=== PATIENT | female | born 1945 | race Caucasian/White ===

== ENCOUNTER → 2016-06-25 | Outpatient (CLI) | payer BC ==
--- NOTE | 2016-06-26 07:42 | MAMMOGRAPHY REPORT ---
BILATERAL DIGITAL SCREENING MAMMOGRAM WITH CAD: 06/25/2016 CLINICAL HISTORY: Routine screening. Patient has no complaints. TECHNIQUE: Current study was also evaluated with a Computer Aided Detection (CAD) system. Bilatera l CC and MLO views were obtained. COMPARISON: Comparison is made to exams dated: 06/25/2015 mammogram - [facility], mammogram, 06/16/2013 mammogram, 06/08/2012 mammogram, 05/26/2011 mammogram, and 05/16/2010 mamm [place]gram [place] [facility] [place]. BREAST COMPOSITION: There are scattered areas of fibroglandular density in both breasts. FINDINGS: No suspicious masses, calcifications, or areas of architectural distortion are noted in e ither breast. There has been no significant interval change compared to prior exams. IMPRESSION: ACR BI-RADS CATEGORY 1: NEGATIVE There is no mammographic evidence of malignancy. A 1 year screening mammogram is recommended. The p atient will receive written notification of the results. Approximately 10% of breast cancers are not detected with mammography. A negative mammographic repor t should not delay biopsy if a clinically suggestive mass is present. Dotty Brewer M.D. ah/:06/25/2016 14:43:25 [employer] Agent: Amanda SANDOVAL(Eric)(M), [facility] letter sent: Normal 1/2 BI-RADS Code: ACR BI-RADS Category 1: Negative
== END | disposition home or self-care (01) ==
LOC: C.MAMM 10:40
PROVIDERS: ATTEND Obstetrics & Gynecology
DX: Z12.31 Encounter for screening mammogram for malignant neoplasm of breast (principal)

== ENCOUNTER → 2016-07-07 | Outpatient (CLI) | payer BC ==
[2016-07-07 13:10] LABS: BASO % 0.6 %; BASO ABS # 0.03 K/uL (0-0.2); COMPLETE YES; EOS % 3.3 %; HEMATOCRIT 39.5 % (37-47); LYMPH % 34.2 %; LYMPH ABS # 1.67 K/uL (1.2-3.4); MEAN CELL VOLUME 87.8 fL (80-100); MEAN CORPUSCULAR HGB CONC 31.9 g/dl (32-36); MEAN PLATELET VOLUME 9.9 fL (7.4-10.4); MONO % 8.2 %; NEUT % 53.7 %; PLATELET COUNT 224 K/uL (130-400); WHITE BLOOD COUNT 4.89 K/uL (4.8-10.8)
[2016-07-07 14:11] LABS: ALT/SGPT 15 U/L (12-78); AST/SGOT 12 U/L (15-37); BLOOD UREA NITROGEN 11 mg/dl (7-18); BUN/CREATININE RATIO 11.2 (10-20); CARBON DIOXIDE 28 mmol/L (21-32); CHLORIDE 108 mmol/L (98-107); CREATININE 0.98 mg/dl (0.60-1.20); GLUCOSE 95 mg/dl (70-99); SODIUM 143 mmol/L (136-145)
[2016-07-07 14:14] LABS: CHOLESTEROL 156 mg/dl (0-200); HDL CHOLESTEROL 39 mg/dl; LDL CHOLESTEROL CALCULATED 83 mg/dl; TRIGLYCERIDES 168 mg/dl (0-150); VERY LOW DENSITY LIPOPROT CALC 34 mg/dl
== END | disposition home or self-care (01) ==
LOC: C.LABMFLN 13:57
PROVIDERS: ATTEND Family Medicine
DX: I10 Essential (primary) hypertension (principal); E78.5 Hyperlipidemia, unspecified; G25.81 Restless legs syndrome; E55.9 Vitamin D deficiency, unspecified

== ENCOUNTER → 2016-10-13 | Outpatient (CLI) | payer BC ==
[~2016-10-13] MED LIST: OPTIRAY 320 IV PRN
--- NOTE | 2016-10-13 13:00 | DIAGNOSTIC IMAGING REPORT ---
CT OF THE ABDOMEN AND PELVIS WITH CONTRAST CLINICAL HISTORY: Acute right lower quadrant abdominal pain. COMPARISON STUDY: CT of the abdomen February 10, 2016. TECHNIQUE: Following IV administration of 93 mL of Optiray-320, axial images of the abdomen and pelvis were obtained from the lung bases to the proximal femurs. Images were reviewed in the axial, sagittal, and coronal planes. IV contrast was administered without complication. A dose lowering technique was utilized adhering to the principles of ALARA. Oral contrast was administered. CT DOSE: 913.86 mGy.cm FINDINGS: Elevation of the right hemidiaphragm is unchanged. There is no biliary ductal dilatation status post cholecystectomy. The liver, spleen, adrenal glands, kidneys and pancreas are unremarkable. There is no pancreatic ductal dilatation. There is no hydronephrosis. A splenule is noted. The caliber and wall thickness of small and large bowel are normal. The appendix is normal. There is no lymphadenopathy within the abdomen or the pelvis. No ascites is present. There is no abscess. The ovaries are not enlarged. There are no suspicious skeletal lesions. Trabecular coarsening and cortical thickening of the L3 vertebra could reflect Paget's disease or a hemangioma. IMPRESSION: 1. No acute process within the abdomen or pelvis. 2. No biliary ductal dilatation status post cholecystectomy. Electronically signed by: Richar Mejia M.D. 10/13/2016 12:59 PM Dictated Date/Time: 10/13/2016 12:50 PM
== END | disposition home or self-care (01) ==
LOC: C.CTS 10:17
PROVIDERS: ATTEND Family Medicine
DX: R10.31 Right lower quadrant pain (principal)

== ENCOUNTER → 2016-10-13 | Outpatient (CLI) | payer BC ==
[2016-10-13 13:44] LABS: BASO % 0.8 %; BASO ABS # 0.04 K/uL (0-0.2); COMPLETE YES; EOS % 2.2 %; HEMATOCRIT 38.7 % (37-47); IG% 0.2 %; LYMPH % 44.4 %; MEAN CELL VOLUME 87.4 fL (80-100); MEAN CORPUSCULAR HEMOGLOBIN 28.4 pg (25-34); MEAN CORPUSCULAR HGB CONC 32.6 g/dl (32-36); MEAN PLATELET VOLUME 10.3 fL (7.4-10.4); MONO % 8.1 %; NEUT % 44.3 %; PLATELET COUNT 200 K/uL (130-400); RED BLOOD COUNT 4.43 M/uL (4.2-5.4); WHITE BLOOD COUNT 4.96 K/uL (4.8-10.8)
[2016-10-13 14:07] LABS: AST/SGOT 11 U/L (15-37); BLOOD UREA NITROGEN 9 mg/dl (7-18); BUN/CREATININE RATIO 8.8 (10-20); CALCIUM 8.9 mg/dl (8.5-10.1); CARBON DIOXIDE 31 mmol/L (21-32); CHLORIDE 108 mmol/L (98-107); GLUCOSE 91 mg/dl (70-99); POTASSIUM 3.6 mmol/L (3.5-5.1); SODIUM 141 mmol/L (136-145)
[2016-10-13 14:08] LABS: ALB/GLOB RATIO 0.9 (0.9-2); ALKALINE PHOSPHATASE 125 U/L (45-117); ALT/SGPT 13 U/L (12-78); AMYLASE 41 U/L (25-115)
[2016-10-13 14:24] LABS: URINE APPEARANCE CLEAR (CLEAR); URINE BILIRUBIN NEG (NEG); URINE COLOR DK YELLOW; URINE NITRITE NEG (NEG); URINE SPECIFIC GRAVITY 1.027 (1.000-1.030); UROBILINOGEN NEG (NEG)
[2016-10-13 14:26] LABS: MANUAL MICROSCOPIC REQUIRED? NO; REVIEW REQ? NO
[2016-10-14 18:57] LABS: O&P GIARDIA AG NOT DETECTED (NOT DETECTED)
== END | disposition home or self-care (01) ==
LOC: C.LABMFLN 07:09
PROVIDERS: ATTEND Family Medicine
DX: R19.7 Diarrhea, unspecified (principal); R10.31 Right lower quadrant pain

== ENCOUNTER → 2017-02-04 | Outpatient (CLI) | payer BC ==
--- NOTE | 2017-02-04 11:56 | DIAGNOSTIC IMAGING REPORT ---
CHEST 2 VIEWS ROUTINE CLINICAL HISTORY: 71 years-old Female presenting with CHRONIC COUGH, MILD ASTHMA. TECHNIQUE: PA and lateral views of the chest were obtained. COMPARISON: None. FINDINGS: Cardiomediastinal silhouette normal. Mildly low lung volumes. No focal infiltrate. No pleural effusion or pneumothorax. Mild anterior height loss of a mid thoracic vertebral body. Cholecystectomy clips. IMPRESSION: 1. No acute cardiopulmonary disease. 2. Mild anterior height loss of a midthoracic vertebral body. Correlate for point tenderness to exclude acute compression fracture. Electronically signed by: Nathan Gonzáles M.D. 02/04/2017 11:55 AM Dictated Date/Time: 02/04/2017 11:53 AM
--- NOTE | 2017-02-07 14:57 | PULMONARY FUNCTION TEST ---
Spirometry is normal. Repeat study done following bronchodilator showed no change in function. Flow volume loops are normal. Lung volumes are normal. Diffusion capacity is normal at 93%.
== END | disposition home or self-care (01) ==
LOC: C.RC 10:46
PROVIDERS: ATTEND Family Medicine
DX: R05 Cough (principal); J45.20 Mild intermittent asthma, uncomplicated

== ENCOUNTER → 2017-06-29 | Outpatient (CLI) | payer BC ==
--- NOTE | 2017-07-01 07:56 | MAMMOGRAPHY REPORT ---
BILATERAL DIGITAL SCREENING MAMMOGRAM TOMOSYNTHESIS WITH CAD: 06/29/2017 CLINICAL HISTORY: Routine screening. Patient has no complaints. TECHNIQUE: Breast tomosynthesis in addition to standard 2D mammography was performed. Current study was also evaluated with a Computer Aided Detection (CAD) system. COMPARISON: Comparison is made to exams dated: 06/25/2016 mammogram, 06/25/2015 mammogram - [facility], 06/18/2014 mammogram, 06/16/2013 mammogram, 06/08/2012 mammogram, and 05/26/2011 mammogr am - [facility]. BREAST COMPOSITION: There are scattered areas of fibroglandular density in both breasts. FINDINGS: The parenchymal pattern is unchanged. No developing mass, architectural distortion or clus ter of suspicious microcalcifications is seen in either breast. IMPRESSION: ACR BI-RADS CATEGORY 2: BENIGN There is no mammographic evidence of malignancy. A 1 year screening mammogram is recommended. The pa tient will receive written notification of the results. Approximately 10% of breast cancers are not detected with mammography. A negative mammographic report should not delay biopsy if a clinically suggestive mass is present. Randa Caldera M.D. ay/:06/29/2017 15:47:13 Operational Review Sergeant: Zakia SANDOVAL(Eric)(Ning), [facility] letter sent: Normal 1/2 BI-RADS Code: ACR BI-RADS Category 2: Benign
== END | disposition home or self-care (01) ==
LOC: C.MAMM 10:26
PROVIDERS: ATTEND Obstetrics & Gynecology
DX: Z12.31 Encounter for screening mammogram for malignant neoplasm of breast (principal)

== ENCOUNTER → 2017-07-26 | Outpatient (CLI) | payer BC ==
[2017-07-26 13:32] LABS: ALBUMIN 3.2 gm/dl (3.4-5.0); ALT/SGPT 15 U/L (12-78); AST/SGOT 15 U/L (15-37); BLOOD UREA NITROGEN 12 mg/dl (7-18); CALCIUM 8.5 mg/dl (8.5-10.1); CARBON DIOXIDE 31 mmol/L (21-32); CREATININE 1.07 mg/dl (0.60-1.20); GLUCOSE 95 mg/dl (70-99); SODIUM 141 mmol/L (136-145)
[2017-07-26 13:35] LABS: ALKALINE PHOSPHATASE 128 U/L (45-117); CHOLESTEROL 153 mg/dl (0-200); LDL CHOLESTEROL CALCULATED 86 mg/dl; TOTAL PROTEIN 7.2 gm/dl (6.4-8.2)
== END | disposition home or self-care (01) ==
LOC: C.LABMFLN 10:35
PROVIDERS: ATTEND Family Medicine
DX: I10 Essential (primary) hypertension (principal); E78.5 Hyperlipidemia, unspecified; E55.9 Vitamin D deficiency, unspecified